=== PATIENT | female | born 1960 | race Caucasian/White ===

== ENCOUNTER 2019-07-25 08:12 | Day surgery (SDC) | payer BC, SELFPAY ==
--- NOTE | 2019-07-22 09:01 | EKG ---
Test Date: 2019-07-21 Test Time: 14:54:11 Director Dental Services: NARCISO MEASUREMENT RESULTS: Intervals: Rate: 51 NJ: 178 QRSD: 92 QT: 498 QTc: 458 [place]: P: 25 NJ: 178 QRS: 79 T: 74 INTERPRETIVE STATEMENTS: Sinus bradycardia with premature atrial complexes Otherwise normal ECG No previous ECG available for comparison Electronically Signed On 07-22-19 08:58:05 DIGITAL IMAGING TECHNICIAN by Nilesh Duncan
--- OUTSIDE RECORDS SUMMARY | 2019-07-25 08:15 | XMS REPORT | Summary of Care ---
:1960 Author Organization [facility] - Health Address [address] [place] [address] Care Team Providers Name Role Phone Naeem Xiao MD Primary Care Provider Encounter Details Date Type Department Care Team Description 03/12/2019 Orders Only [facility] Doctor Unassigned, No [address] [facility] [place] [address] [address] [place] [address] Allergies Active Allergy Reactions Severity Noted Date Comments Varenicline Unknown - See comments 06/16/2015 documented as of this encounter (statuses as of 03/12/2019) Medications Medication Sig Dispensed Refills Start Date End Date Status HYDROcodone-acetaminophen 0 07/21/2015 Active (NORCO) 10-325 mg tablet ziprasidone (GEODON) 80 0 07/21/2015 Active mg capsule FLUCONAZOLE 150 mg TAKE 1 TABLET 4 tablet 0 05/25/2017 Active tabletIndications: Tinea BY MOUTH cruris WEEKLY. potassium chloride Take 1 tablet 30 tablet 5 11/09/2017 Active (KLOR-CON 10) 10 mEq CR by mouth tabletIndications: daily. Localized edema Insulin [place], Use as 100 Each 12 11/26/2017 Active Disposable, (NOVOFINE 32) directed 32 gauge x /" NdleIndications: Uncontrolled type 2 diabetes mellitus without complication, without long-term current use of insulin NOVOFINE 32 32 gauge x USE 1 Box 12 11/27/2017 Active 1/4" NdleIndications: DIRECTED Uncontrolled type 2 diabetes mellitus without complication, without long-term current use of insulin insulin degludec (TRESIBA inject 40 15 Syringe 4 11/28/2017 Active FLEXTOUCH U-100) 100 Units under unit/mL (3 mL) the skin InPnIndications: Type 2 daily. diabetes mellitus without complication, with long-term current use of insulin GABAPENTIN 300 mg TAKE 1 CAPSULE 270 capsule 3 01/22/2018 Active capsuleIndications: BY MOUTH 3 Neuropathy (THREE) TIMES DAILY. albuterol 90 Inhale 2 Puffs 8.5 g 5 06/18/2018 Active mcg/actuation every 6 (six) inhalerIndications: hours as Simple chronic bronchitis needed for Wheezing or Shortness of Breath. fluticasone 50 Use 1 [place] in 16 g 5 06/18/2018 Active mcg/actuation nasal each nostril sprayIndications: Chronic daily. sinusitis, unspecified location telmisartan 80 mg TAKE 1 TABLET 90 tablet 4 06/18/2018 Active tabletIndications: BY MOUTH Essential hypertension DAILY. ALPRAZolam 0.5 mg TAKE 1 TABLET 60 tablet 5 06/18/2018 Active tabletIndications: BY MOUTH TWICE Anxiety A DAY gabapentin 300 mg Take 1 capsule 270 capsule 4 06/18/2018 Active capsuleIndications: by mouth 3 Neuropathy (three) times daily. vilazodone (VIIBRYD) 20 Take 1 tablet 90 tablet 4 06/18/2018 Active mgIndications: by mouth Depression, unspecified daily. depression type nortriptyline 75 mg Take 1 capsule 90 capsule 4 06/18/2018 Active capsuleIndications: by mouth at Depression, unspecified bedtime. depression type Fenofibric Acid 135 mg TAKE 1 CAPSULE 90 capsule 4 06/18/2018 Active capsuleIndications: BY MOUTH ONCE Hypertriglyceridemia A DAY metoprolol tartrate 25 mg TAKE 1 TABLET 180 tablet 4 06/18/2018 Active tabletIndications: BY MOUTH 2 Essential hypertension TIMES A DAY amLODIPine 5 mg Take 1 tablet 90 tablet 4 06/18/2018 Active tabletIndications: by mouth Essential hypertension daily. FUROSEMIDE 40 mg TAKE 1 TABLET 30 tablet 5 09/19/2018 Active tabletIndications: BY MOUTH EVERY Localized edema DAY TRESIBA FLEXTOUCH U-100 INJECT 40 15 Syringe 5 12/16/2018 Active 100 unit/mL (3 mL) UNITS UNDER InPnIndications: Type 2 THE SKIN diabetes mellitus without DAILY. complication, with long-term current use of insulin ESTRADIOL 0.5 mg TAKE 1 TABLET 90 tablet 0 12/26/2018 Active tabletIndications: BY MOUTH IN Menopausal syndrome THE MORNING documented as of this encounter (statuses as of 03/12/2019) Active Problems Problem Noted Date Smoking 06/18/2018 Depression 12/07/2015 Diabetes 12/07/2015 Essential hypertension 12/07/2015 Hypertriglyceridemia 12/07/2015 Osteoarthritis 12/07/2015 documented as of this encounter (statuses as of 03/12/2019) Immunizations Name Administration Dates Next Due Influenza Virus Vaccine Quad IM Multi-dose 6+ MO 05/02/2017 documented as of this encounter Social History Tobacco Use Types Packs/Day Years Used Date Current Every Day Smoker Cigarettes 1 40 Smokeless Tobacco: Never Used Alcohol Use Drinks/Week oz/Week Comments No 0 Standard drinks or equivalent 0.0 Sex Assigned at Date Recorded Not on file Job Start Date Occupation Industry Not on file Not on file Not on file Travel History Travel Start Travel End No recent travel history available. documented as of this encounter Last Filed Vital Signs Not on filedocumented in this encounter Plan of Treatment Date Type Specialty Care Team Description 03/12/2019 Office Visit Family Medicine Naeem Xiao MD [address] [place] [address] [place] [address] Health Maintenance Due Date Last Done Comments HEPATITIS C (HCV) SCREEN 1960 PNEUMOCOCCAL 0-64 YEARS COMBINED 1965 SERIES (1 of 1 - PPSV23) EYE EXAM 1969 FOOT EXAM 1977 DTaP,Tdap,and Td Vaccines (1 - 1978 Tdap) COLONOSCOPY 2009 Zoster Recombinant Vaccine 2009 (SHINGRIX) (1 of 2) LUNG CANCER SCREEN: Recommended 2014 for age 55-80 with 30 + pack year history HgA1C 12/17/2018 06/18/2018, 05/30/2017, 01/29/2017, Additional history exists MAMMOGRAM 02/26/2019 02/26/2018, 02/09/2017, 12/20/2015 INFLUENZA VACCINE (#1) 2019 05/02/2017 CREATININE (SERUM) 08/01/2019 08/01/2018, 11/09/2017, 05/31/2016, Additional history exists LDL-C 08/01/2019 08/01/2018, 05/31/2016, 06/16/2015 URINE MICROALBUMIN 08/01/2019 08/01/2018, 05/31/2016, 06/16/2015 documented as of this encounter Procedures Procedure Name Priority Date/Time Associated Diagnosis Comments NO SHOW OR MISSED Routine 03/12/2019 2:54 PM APPOINTMENT POLICY CDT ACKNOWLEDGEMENT documented in this encounter Results Not on filedocumented in this encounter Insurance Payer Benefit Plan Subscriber ID Effective Dates Phone Address Type / Group BCBS OF [employer] [place] [id number] 2016-Deric [phone] [address] PPO/POS [place] - OUT OF t 7 [id number] [place] [address] documented as of this encounter
--- OUTSIDE RECORDS SUMMARY | 2019-07-25 08:15 | XMS REPORT | Summary of Care ---
:1960 Author Organization [facility] - [facility] Address [address] [place] [address] Care Team Providers Name Role Phone Naeem Xiao MD Primary Care Provider Reason for Referral Radiology Services (Routine) Status Reason Specialty Diagnoses / Referred By Referred To Procedures Contact Contact New Request Diagnostic Diagnoses Left foot pain Naeem Xiao Radiology Procedures XR FOOT 3+ VW LEFT MD Jason [address] [place] [address] [place] [address] Reason for Visit Reason Comments Foot Pain left x 1 week Encounter Details Date Type Department Care Team Description 03/12/[address] [facility] Family Naeem Xiao Left foot pain Medicine - Hong Gomez MD (Primary Dx) [facility] [address] [place] [address] [place] [phone] Allergies Active Allergy Reactions Severity Noted Date [...] by mouth tabletIndications: daily. Localized edema Insulin [place], Use as 100 Each 12 11/26/2017 Active Disposable, (NOVOFINE 32) directed 32 gauge x 07/19" NdleIndications: Uncontrolled type 2 diabetes mellitus without complication, without long-term current use of insulin NOVOFINE 32 32 gauge x USE 1 Box 12 11/27/2017 Active 07/19" NdleIndications: DIRECTED Uncontrolled type 2 diabetes mellitus [...] Shortness of Breath. fluticasone 50 Use 1 [place] in 16 g 5 06/18/2018 Active mcg/actuation [...] BY MOUTH IN Menopausal syndrome THE MORNING indomethacin 50 mg Take 1 capsule 30 capsule 2 03/12/2019 Active capsuleIndications: Left by mouth 3 foot pain (three) times daily with meals. documented as of this encounter (statuses as [...] of this encounter Last Filed Vital Signs Vital Sign Reading Time Taken Comments Blood Pressure 154/79 03/12/2019 3:04 PM CDT Pulse 63 03/12/2019 3:04 PM CDT Temperature 36.3 C (97.4 F) 03/12/2019 3:04 PM CDT Respiratory Rate 16 03/12/2019 3:04 PM CDT Oxygen Saturation - - Inhaled Oxygen Concentration - - Weight 104.2 kg (229 lb 12.8 oz) 03/12/2019 3:04 PM CDT Height 165.1 cm (5' 5") 03/12/2019 3:04 PM CDT Body Mass Index 38.24 03/12/2019 3:04 PM CDT documented in this encounter Progress Notes Naeem Xiao MD - 03/12/2019 3:15 PM CDT CC: pain left foot Angela is a 59 year old female Foot Pain This is a new problem. The current episode started in the past 7 days. The symptoms are aggravated by standing and walking. She has tried oral narcotics for the symptoms. The treatment provided no relief. Allergies Allergen Reactions Chantix [Varenicline] Unknown - See comments Current Outpatient Medications Medication Sig Dispense Refill ESTRADIOL 0.5 mg tablet TAKE 1 TABLET BY MOUTH IN THE MORNING 90 tablet 0 [place]ES[place]A FLEXTOUCH U-100 100 unit/mL (3 mL) InPn INJECT 40 UNITS UNDER THE SKIN DAILY. 15 Syringe5 FUROSEMIDE 40 mg tablet TAKE 1 TABLET BY MOUTH EVERY DAY 30 tablet 5 albuterol 90 mcg/actuation inhaler Inhale 2 Puffs every 6 (six) hours as needed for Wheezing or Shortness of Breath. 8.5 g 5 ALPRAZolam 0.5 mg tablet TAKE 1 TABLET BY MOUTH TWICE A DAY 60 tablet 5 amLODIPine 5 mg tablet Take 1 tablet by mouth daily. 90 tablet 4 Fenofibric Acid 135 mg capsule TAKE 1 CAPSULE BY MOUTH ONCE A DAY 90 capsule 4 fluticasone 50 mcg/actuation nasal spray Use 1 [place] in each nostril daily. 16 g 5 gabapentin 300 mg capsule Take 1 capsule by mouth 3 (three) times daily. 270 capsule 4 metoprolol tartrate 25 mg tablet TAKE 1 TABLET BY MOUTH 2 TIMES A DAY 180 tablet 4 nortriptyline 75 mg capsule Take 1 capsule by mouth at bedtime. 90 capsule 4 telmisartan 80 mg tablet TAKE 1 TABLET BY MOUTH DAILY. 90 tablet 4 vilazodone (VIIBRYD) 20 mg Take 1 tablet by mouth daily. 90 tablet 4 GABAPENTIN 300 mg capsule TAKE 1 CAPSULE BY MOUTH 3 (THREE) TIMES DAILY. 270 capsule 3 insulin degludec (TRESIBA FLEXTOUCH U-100) 100 unit/mL (3 mL) InPn inject 40 Units under the skin daily. 15 Syringe 4 NOVOFINE 32 32 gauge x 1/4" Ndle USE DIRECTED 1 Box 12 Insulin [place], Disposable, (NOVOFINE 32) 32 gauge x 1/4" Ndle Use as directed 100 Each 12 potassium chloride (KLOR-CON 10) 10 mEq CR tablet Take 1 tablet by mouth daily. 30 tablet 5 FLUCONAZOLE 150 mg tablet TAKE 1 TABLET BY MOUTH WEEKLY. 4 tablet 0 HYDROcodone-acetaminophen (NORCO) 10-325 mg tablet ziprasidone (GEODON) 80 mg capsule No current facility-administered medications for this visit. Past Medical History: Diagnosis Date Depression Diabetes mellitus Generalized pain Hyperlipidemia Hypertension Seizures Past Surgical History: Procedure Laterality Date SECTION CHOLECYSTECTOMY HYSTERECTOMY complete OPEN CARPAL TUNNEL RELEASE Left RADICAL HYSTERECTOMY TONSILLECTOMY Social History Socioeconomic History Marital status: Spouse name: Not on file Number of children: Not on file Years of education: Not on file Highest education level: Not on file Occupational History Not on file Social Needs Financial resource strain: Not on file Food insecurity: Worry: Not on file Inability: Not on file Transportation needs: Medical: Not on file Non-medical: Not on file Tobacco Use Smoking status: Current Every Day Smoker Packs/day: 1.00 Years: 40.00 Pack years: 40.00 Types: Cigarettes Smokeless tobacco: Never Used Substance and Sexual Activity Alcohol use: No Alcohol/week: 0.0 oz Drug use: No Sexual activity: Not on file Lifestyle Physical activity: Days per week: Not on file Minutes per session: Not on file Stress: Not on file Relationships Social connections: Talks on phone: Not on file Gets together: Not on file Attends jehovah's witness service: Not on file Active member of club or organization: Not on file Attends meetings of clubs or organizations: Not on file Relationship status: Not on file Intimate partner violence: Fear of current or ex partner: Not on file Emotionally abused: Not on file Physically abused: Not on file Forced sexual activity: Not on file Other Topics Concern Not on file Social History Narrative Takes care of parents Family History Problem Relation Age of Onset Diabetes Father Hypertension Father Hypertension Mother Cancer Maternal Grandmother Lung Breast Cancer Paternal Aunt Review of Systems BP (!) 154/79 (BP Location: Left arm, Patient Position: Sitting, BP CUFF SIZE: Adult XL) | Pulse 63 | Temp 36.3 C (97.4 F) (Temporal Artery) | Resp 16 | Ht 5' 5" (1.651 m) | Wt 229 lb 12.8 oz (104.2 kg) | BMI 38.24 kg/m Physical Exam Constitutional: She is oriented to person, place, and time. She appears well- developed and well-nourished. HENT: Head: Normocephalic and atraumatic. Eyes: Pupils are equal, round, and reactive to light. Conjunctivae are normal. Neck: Normal range of motion. Neck supple. No JVD present. No tracheal deviation present. No thyromegaly present. Cardiovascular: Normal rate, regular rhythm, normal heart sounds and intact distal pulses. Exam reveals no gallop and no friction rub. No murmur heard. Pulmonary/Chest: Effort normal and breath sounds normal. No respiratory distress. She has no wheezes. She has no rales. She exhibits no tenderness. Abdominal: Soft. Bowel sounds are normal. She exhibits no distension and no mass. There is no tenderness. There is no rebound and no guarding. Musculoskeletal: Normal range of motion. She exhibits no edema. Left foot: There is tenderness (across entire sole of foot). Lymphadenopathy: She has no cervical adenopathy. Neurological: She is alert and oriented to person, place, and time. Skin: Skin is warm and dry. Diagnosis: 1. Left foot pain XR FOOT 3+ VW LEFT indomethacin 50 mg capsule if xray negative - stretching exercises Follow up: prn Patient Care Team: Naeem Xiao MD as PCP - General ([facility]-FAMILY MEDICINE) Plan of care, desired health behaviors, goals,& medication discussed with patient. Education resources & self management tools provided and reviewed with AVS. Patient/guardian/family verbalized understanding & agrees to plan of care. Barriers to care: None Ability to manage care: Good documented in this encounter Plan of Treatment Name Type Priority Associated Diagnoses Order Schedule XR FOOT 3+ VW LEFT IMAGING Routine Left foot pain Expected: 03/12/2019, Expires: 03/12/2020 Health Maintenance Due Date Last Done Comments [...] 05/31/2016, 06/16/2015 documented as of this encounter Results Not on filedocumented in this encounter Visit Diagnoses Diagnosis Left foot pain - Primary Pain in limb documented in this encounter Insurance Payer Benefit Plan Subscriber ID Effective Dates Phone Address Type / Group BCBS OF [facility] [id number] 2016-Deric [phone] [address] PPO/POS [place] - OUT OF t 7 [id number] [place] [address] documented as of this encounter
--- OUTSIDE RECORDS SUMMARY | 2019-07-25 08:15 | XMS REPORT | Summary of Care ---
:1960 Author Organization [facility] - [facility] Address [address] [place] [address] Care Team Providers Name Role Phone Naeem Xiao MD Primary Care Provider Reason for Referral Radiology Services (Routine) Status Reason Specialty Diagnoses / Referred By Referred To Procedures Contact Contact New Request Diagnostic Diagnoses Left foot pain Naeem Xiao Radiology Procedures XR FOOT 3+ VW LEFT MD Jason [address] [place] [address] [place] [address] Reason for Visit Reason Comments Foot Pain left x 1 week Encounter Details Date Type Department Care Team Description 03/12/2019 Office Visit [facility] Family Naeem Xiao Left foot pain Medicine - Hong Gomez MD (Primary Dx) [facility] [address] [place] [address] [place] [phone] Allergies Active Allergy Reactions Severity Noted Date [...] by mouth tabletIndications: daily. Localized edema Insulin [place], Use as 100 Each 12 11/26/2017 Active [...] Shortness of Breath. fluticasone 50 Use 1 [place] in 16 g 5 06/18/2018 Active mcg/actuation [...] fluticasone 50 mcg/actuation nasal spray Use 1 [place] in each nostril daily. 16 g 5 [...] Ndle USE DIRECTED 1 Box 12 Insulin [place], Disposable, (NOVOFINE 32) 32 gauge x 1/4" [...] file Gets together: Not on file Attends zoroastrian service: Not on file Active member of [...] Phone Address Type / Group BCBS OF [facility] [id number] 2016-Deric [phone] [address] PPO/POS [place] - OUT OF t 7 [id number] [place] [address] documented as of this encounter
--- OUTSIDE RECORDS SUMMARY | 2019-07-25 08:16 | XMS REPORT | Summary of Care ---
:1960 Author Organization [facility] Address [address] [place] [address] Care Team Providers Name Role Phone Naeem Xiao MD Primary Care Provider Reason for Visit Reason Comments Refill Request Encounter Details Date Type Department Care Team Description 03/21/[address] [facility] Family Medicine Naeem Xiao MD Refill Request - [address] [address] [place] [address] Allergies Active Allergy Reactions Severity Noted Date Comments Varenicline Unknown - See comments 06/16/2015 documented as of this encounter (statuses as of 03/24/2019) Medications Medication Sig Dispensed Refills Start End Status Date Date HYDROcodone-acetaminophe 0 07/21/19 Active n (NORCO) 10-325 mg 16 tablet ziprasidone (GEODON) 80 0 07/21/19 Active mg capsule 16 FLUCONAZOLE 150 mg TAKE 1 TABLET 4 tablet 0 05/25/20 Active tabletIndications: Tinea BY MOUTH 17 cruris WEEKLY. potassium chloride Take 1 tablet 30 tablet 5 11/10/19 Active (KLOR-CON 10) 10 mEq CR by mouth 18 tabletIndications: daily. Localized edema NOVOFINE 32 32 gauge x USE 1 Box 12 11/28/19 Active 1/4" NdleIndications: DIRECTED 18 Uncontrolled type 2 diabetes mellitus without complication, without long-term current use of insulin insulin degludec inject 40 15 Syringe 4 11/29/19 Active (TRESIBA FLEXTOUCH Units under 18 U-100) 100 unit/mL (3 the skin mL) InPnIndications: daily. Type 2 diabetes mellitus without complication, with long-term current use of insulin GABAPENTIN 300 mg TAKE 1 270 capsule 3 01/23/20 Active capsuleIndications: CAPSULE BY 18 Neuropathy MOUTH 3 (THREE) TIMES DAILY. albuterol 90 Inhale 2 8.5 g 5 06/18/20 Active mcg/actuation Puffs every 6 18 inhalerIndications: (six) hours Simple chronic as needed for bronchitis Wheezing or Shortness of Breath. fluticasone 50 Use 1 [place] 16 g 5 06/18/20 Active mcg/actuation nasal in each 18 sprayIndications: nostril Chronic sinusitis, daily. unspecified location telmisartan 80 mg TAKE 1 TABLET 90 tablet 4 06/18/20 Active tabletIndications: BY MOUTH 18 Essential hypertension DAILY. ALPRAZolam 0.5 mg TAKE 1 TABLET 60 tablet 5 06/18/20 Active tabletIndications: BY MOUTH 18 Anxiety TWICE A DAY gabapentin 300 mg Take 1 270 capsule 4 06/18/20 Active capsuleIndications: capsule by 18 Neuropathy mouth 3 (three) times daily. vilazodone (VIIBRYD) 20 Take 1 tablet 90 tablet 4 06/18/20 Active mgIndications: by mouth 18 Depression, unspecified daily. depression type nortriptyline 75 mg Take 1 90 capsule 4 06/18/20 Active capsuleIndications: capsule by 18 Depression, unspecified mouth at depression type bedtime. Fenofibric Acid 135 mg TAKE 1 90 capsule 4 06/18/20 Active capsuleIndications: CAPSULE BY 18 Hypertriglyceridemia MOUTH ONCE A DAY metoprolol tartrate 25 TAKE 1 TABLET 180 tablet 4 06/18/20 Active mg tabletIndications: BY MOUTH 2 18 Essential hypertension TIMES A DAY amLODIPine 5 mg Take 1 tablet 90 tablet 4 06/18/20 Active tabletIndications: by mouth 18 Essential hypertension daily. FUROSEMIDE 40 mg TAKE 1 TABLET 30 tablet 5 09/20/19 Active tabletIndications: BY MOUTH 19 Localized edema EVERY DAY TRESIBA FLEXTOUCH U-100 INJECT 40 15 Syringe 5 12/17/19 Active 100 unit/mL (3 mL) UNITS UNDER 19 InPnIndications: Type 2 THE SKIN diabetes mellitus DAILY. without complication, with long-term current use of insulin indomethacin 50 mg Take 1 30 capsule 2 03/12/20 Active capsuleIndications: Left capsule by 19 foot pain mouth 3 (three) times daily with meals. Insulin [place], USE 1 Box 12 03/19/20 Active Disposable, (NOVOFINE DIRECTED 19 32) 32 gauge x 1/4" NdleIndications: Uncontrolled type 2 diabetes mellitus without complication, without long-term current use of insulin ESTRADIOL 0.5 mg TAKE 1 TABLET 30 tablet 2 03/24/20 Active tabletIndications: BY MOUTH 19 Menopausal syndrome EVERY DAY IN THE MORNING ESTRADIOL 0.5 mg TAKE 1 TABLET 90 tablet 0 12/27/19 Discontinued tabletIndications: BY MOUTH IN 19 019 Menopausal syndrome THE MORNING documented as of this encounter (statuses as of 03/24/2019) Active Problems Problem Noted Date Smoking 06/18/2018 Depression 12/07/2015 Diabetes 12/07/2015 Essential hypertension 12/07/2015 Hypertriglyceridemia 12/07/2015 Osteoarthritis 12/07/2015 documented as of this encounter (statuses as of 03/24/2019) Immunizations Name Administration Dates Next Due Influenza [...] filedocumented in this encounter Plan of Treatment Health Maintenance Due Date Last Done Comments [...] filedocumented in this encounter Visit Diagnoses Diagnosis Menopausal syndrome Symptomatic menopausal or female climacteric states documented in this encounter Insurance Payer Benefit Plan Subscriber ID Effective Dates Phone Address Type / Group BCBS OF BCBS [facility] [id number] 2016-Deric [phone] [address] PPO/POS [place] - OUT OF t 7 [id number] [place] [address] documented as of this encounter
--- OUTSIDE RECORDS SUMMARY | 2019-07-25 08:16 | XMS REPORT | Summary of Care ---
:1960 Author Organization [facility] Address [address] [place] [address] Care Team Providers Name Role Phone Naeem Xiao MD Primary Care Provider Reason for Referral Radiology Services (Routine) Status Reason Specialty Diagnoses / Referred By Referred To Procedures Contact Contact Closed Diagnostic Diagnoses Left foot pain Naeem Xiao Radiology Procedures XR FOOT 3+ VW LEFT MD Jason [address] [place] [address] [place] [address] Radiology Services (Routine) Status Reason Specialty Diagnoses / Referred By Referred To Procedures Contact Contact Closed Diagnostic Diagnoses Left foot pain Naeem Xiao Radiology Procedures XR FOOT 3+ VW LEFT MD Jason [address] [place] [address] [place] [address] Reason for Visit Radiology Services (Routine) Status Reason Specialty Diagnoses / Referred By Referred To Procedures Contact Contact Closed Diagnostic Diagnoses Left foot pain Naeem Xiao Radiology Procedures XR FOOT 3+ VW LEFT MD Jason [address] [place] [address] [facility] [place] [address] Encounter Details Date Type Department Care Team Description 03/21/2019 Hospital Encounter [facility] Naeem Castillo Radiology MD Jason [address] [place] [address] [place] [address] [place] [address] [place], [place] [phone] [address] Allergies Active Allergy Reactions Severity Noted Date Comments Varenicline Unknown - See comments 06/16/2015 documented as of this encounter (statuses as of 03/22/2019) Medications Medication Sig Dispensed Refills Start Date [...] CR by mouth tabletIndications: daily. Localized edema NOVOFINE 32 32 [...] Shortness of Breath. fluticasone 50 Use 1 [place] in 16 g 5 06/18/2018 Active mcg/actuation [...] foot pain (three) times daily with meals. Insulin [place], USE 1 Box 12 03/19/2019 Active Disposable, (NOVOFINE 32) DIRECTED 32 gauge x 1/4" NdleIndications: Uncontrolled type 2 diabetes mellitus without complication, without long-term current use of insulin documented as of this encounter (statuses as of 03/22/2019) Active Problems Problem Noted Date Smoking 06/18/2018 Depression 12/07/2015 Diabetes 12/07/2015 Essential hypertension 12/07/2015 Hypertriglyceridemia 12/07/2015 Osteoarthritis 12/07/2015 documented as of this encounter (statuses as of 03/22/2019) Immunizations Name Administration Dates Next Due Influenza [...] Procedure Name Priority Date/Time Associated Diagnosis Comments XR FOOT 3+ VW LEFT Routine 03/21/2019 3:04 PM Left foot pain Results for this CDT procedure are in the results section. documented in this encounter Results XR FOOT 3+ VW LEFT (03/21/2019 3:04 PM CDT) Specimen Impressions Performed At 1. No acute bony abnormality PACS/VR/DOSE 2. Changes of degenerative joint disease 3. Soft tissue swelling. 4. Small plantar spur Narrative Performed At * * * * * * * * ORIGINAL REPORT * * * * * * * * PACS/VR/DOSE EXAM: Left foot 3 views HISTORY: severe pain left foot TECHNIQUE:AP, lateral, oblique view of the left foot is obtained. COMPARISON: 08/05/2015 FINDINGS:No acute fracture or dislocation is seen. Degenerative changes are seen in the MTP joint of the great toe as well as talonavicular joint and intertarsal joints. A plantar calcaneal spur is present. Ossification of the insertion site of the Achilles tendon is noted. Mild soft tissue swelling is seen in the mid forefoot. Procedure Note [facility], Radiant Results Inft User - 03/21/2019 3:26 PM CDT * * * * * * * * ORIGINAL REPORT * * * * * * * * EXAM: Left foot 3 views HISTORY: severe pain left foot TECHNIQUE:AP, lateral, oblique view of the left foot is obtained. COMPARISON: 08/05/2015 FINDINGS:No acute fracture or dislocation is seen. Degenerative changes are seen in the MTP joint of the great toe as well as talonavicular joint and intertarsal joints. A plantar calcaneal spur is present. Ossification of the insertion site of the Achilles tendon is noted. Mild soft tissue swelling is seen in the mid forefoot. IMPRESSION 1. No acute bony abnormality 2. Changes of degenerative joint disease 3. Soft tissue swelling. 4. Small plantar spur Performing Organization Address [facility] Number [facility]/VR/DOSE documented in this encounter Visit Diagnoses Diagnosis Left foot pain Pain in limb documented in this encounter Insurance Payer Benefit Plan Subscriber ID Effective Dates Phone Address Type / Group BCBS [facility] [id number] 2016-Deric [phone] [address] PPO/POS [place] - OUT OF t 7 [id number] [place] [address] documented as of this encounter
--- OUTSIDE RECORDS SUMMARY | 2019-07-25 08:16 | XMS REPORT | Summary of Care ---
:1960 Author Organization [facility] Address [address] [place] [address] Care Team Providers Name Role Phone Naeem Xiao MD Primary Care Provider Reason for Visit Reason Comments Refill Request Encounter Details Date Type Department Care Team Description 03/19/2019 Refill [facility] Family Medicine Naeem Xiao MD Refill Request - [address] [address] [place] [address] Allergies Active Allergy Reactions Severity Noted Date Comments Varenicline Unknown - See comments 06/16/2015 documented as of this encounter (statuses as of 03/19/2019) Medications Medication Sig Dispensed Refills Start End [...] Shortness of Breath. fluticasone 50 Use 1 [place] 16 g 5 06/18/20 Active mcg/actuation nasal [...] TAKE 1 TABLET 90 tablet 0 12/27/19 Active tabletIndications: BY MOUTH IN 19 Menopausal syndrome THE MORNING indomethacin 50 mg Take 1 30 capsule 2 03/12/20 Active capsuleIndications: Left capsule by 19 foot pain mouth 3 (three) times daily with meals. Insulin [place], USE 1 Box 12 03/19/20 Active Disposable, (NOVOFINE DIRECTED 19 32) 32 gauge x 1/4" NdleIndications: Uncontrolled type 2 diabetes mellitus without complication, without long-term current use of insulin Insulin [place], Use as 100 Each 12 11/27/19 Discontinued Disposable, (NOVOFINE directed 18 019 32) 32 gauge x 1/4" NdleIndications: Uncontrolled type 2 diabetes mellitus without complication, without long-term current use of insulin documented as of this encounter (statuses as of 03/19/2019) Active Problems Problem Noted Date Smoking 06/18/2018 Depression 12/07/2015 Diabetes 12/07/2015 Essential hypertension 12/07/2015 Hypertriglyceridemia 12/07/2015 Osteoarthritis 12/07/2015 documented as of this encounter (statuses as of 03/19/2019) Immunizations Name Administration Dates Next Due Influenza [...] filedocumented in this encounter Visit Diagnoses Diagnosis Uncontrolled type 2 diabetes mellitus without complication, without long-term current use of insulin documented in this encounter Insurance Payer Benefit Plan Subscriber ID Effective Dates Phone Address Type / Group BCBS OF [employer] [place] [id number] 2016-Deric [phone] [address] PPO/POS [place] - OUT OF t 7 [id number] [place] [address] documented as of this encounter
--- OUTSIDE RECORDS SUMMARY | 2019-07-25 08:16 | XMS REPORT ---
:1960 Author Organization [facility] Address [address] [place] [address] Dr. Espinosa [address] [place] [address] Care Team Providers Name Role Phone Unavailable Unavailable Unavailable Problems This patient has no known problems. Allergies, Adverse Reactions, Alerts This patient has no known allergies or adverse reactions. Medications This patient has no known medications.
--- OUTSIDE RECORDS SUMMARY | 2019-07-25 08:16 | XMS REPORT | Summary of Care ---
:1960 Author Organization [facility] - [facility] Address [address] [place] [address] Care Team Providers Name Role Phone Naeem Xiao MD Primary Care Provider Encounter Details Date Type Department Care Team Description 03/21/2019 Orders Only [facility] Doctor Unassigned, [address] [facility] Name [place] [id number] [place] [address] Allergies Active Allergy Reactions Severity Noted Date Comments Varenicline Unknown - See comments 06/16/2015 documented as of this encounter (statuses as of 03/21/2019) Medications Medication Sig Dispensed Refills Start Date [...] x USE 1 Box 12 11/27/2017 Active /" NdleIndications: DIRECTED Uncontrolled type 2 diabetes mellitus [...] Shortness of Breath. fluticasone 50 Use 1 [place] in 16 g 5 06/18/2018 Active mcg/actuation [...] pain (three) times daily with meals. Insulin [place], USE 1 Box 12 03/19/2019 Active Disposable, (NOVOFINE 32) DIRECTED 32 gauge x 1/4" NdleIndications: Uncontrolled type 2 diabetes mellitus without complication, without long-term current use of insulin documented as of this encounter (statuses as of 03/21/2019) Active Problems Problem Noted Date Smoking 06/18/2018 Depression 12/07/2015 Diabetes 12/07/2015 Essential hypertension 12/07/2015 Hypertriglyceridemia 12/07/2015 Osteoarthritis 12/07/2015 documented as of this encounter (statuses as of 03/21/2019) Immunizations Name Administration Dates Next Due Influenza [...] Procedure Name Priority Date/Time Associated Diagnosis Comments ASSIGNMENT OF BENEFITS Routine 03/21/2019 2:54 PM CDT documented in this encounter Results Not on filedocumented in this encounter Insurance Payer Benefit Plan Subscriber ID Effective Dates Phone Address Type / Group BCBS OF [facility] [place] [id number] 2016-Deric [phone] [address] PPO/POS [place] - OUT OF t 7 [id number] [place] [address] documented as of this encounter
--- OUTSIDE RECORDS SUMMARY | 2019-07-25 08:16 | XMS REPORT | Summary of Care ---
:1960 Author Organization [facility] Address [address] [place] [address] Care Team Providers Name Role Phone Naeem Xiao MD Primary Care Provider Reason for Visit Reason Comments Results Encounter Details Date Type Department Care Team Description 03/24/2019 Telephone [facility] Family Medicine Naeem Xiao MD Results - [address] [address] [place] [address] Allergies Active Allergy Reactions Severity Noted Date Comments Varenicline Unknown - See comments 06/16/2015 documented as of this encounter (statuses as of 03/24/2019) Medications Medication Sig Dispensed Refills Start Date [...] x USE 1 Box 12 11/27/2017 Active 1" NdleIndications: DIRECTED Uncontrolled type 2 diabetes mellitus [...] Shortness of Breath. fluticasone 50 Use 1 [place] in 16 g 5 06/18/2018 Active mcg/actuation [...] of insulin indomethacin 50 mg Take 1 capsule 30 capsule 2 03/12/2019 Active capsuleIndications: Left by mouth 3 foot pain (three) times daily with meals. Insulin [place], USE 1 Box 12 03/19/2019 Active Disposable, (NOVOFINE 32) DIRECTED 32 gauge x 1/4" NdleIndications: Uncontrolled type 2 diabetes mellitus without complication, without long-term current use of insulin ESTRADIOL 0.5 mg TAKE 1 TABLET 30 tablet 2 03/24/2019 Active tabletIndications: BY MOUTH EVERY Menopausal syndrome DAY IN THE MORNING documented as of this encounter [...] Type / Group BCBS OF [employer] [place] [id number] 2016-Deric [phone] [address] PPO/POS [place] - OUT OF t 7 [id number] [place] [address] documented as of this encounter
[2019-07-25] MEDS ORDERED: NA CHLORIDE 0.9% 1,000 ML ONE (08:47)
[2019-07-25] MEDS ORDERED: EPINEPHRINE/PF 1 MG/ML AMP ONE (09:49)
[2019-07-25] MEDS ORDERED: LIDOCAINE 1% W/EPI 1:100,000 MDV 20 ML VIAL ONE (09:49)
[2019-07-25] MEDS ORDERED: OXYMETAZOLINE HCL 0.05% 15ML NAS ONE (09:49)
[2019-07-25] MEDS ORDERED: SUCCINYLCHOLINE 20 MG/ML (10 ML) IV ONE (10:07)
[2019-07-25] MEDS ORDERED: MIDAZOLAM HCL 2 MG/2 ML INJ ONE (10:08)
[2019-07-25] MEDS ORDERED: ROCURONIUM 50 MG/5 ML VIAL IV ONE (10:08)
[2019-07-25] MEDS ORDERED: LIDOCAINE 2% MPF 5 ML VIAL ONE (10:08)
[2019-07-25] MEDS ORDERED: propofoL 200 MG/20 ML VIAL IV ONE ×2 (10:08→10:54)
[2019-07-25] MEDS ORDERED: FENTANYL CITR 100 MCG/2 ML ONE ×3 (10:09→11:24)
[2019-07-25] MEDS ORDERED: ONDANSETRON 4 MG/2 ML VIAL ONE ×2 (10:13→11:29)
[2019-07-25] MEDS ORDERED: GLYCOPYRROLATE 0.2 MG/ML SYR ONE ×3 (10:45→11:27)
--- NOTE | 2019-07-25 12:20 | P.BOP ---
Preoperative diagnosis: vocal polyps, tobacco use Postoperative diagnosis: same Primary procedure: DL with exision of right TVF polyps Osteopathic Medicine Teacher: NONE,NONE Estimated blood loss: <5ml Specimen: R TVF lesion/polyps Findings: large, obstructive polyps Anesthesia: General Complications: None Fluids & blood products: see gerald. record Transferred to: Recovery Room Condition: Good
[2019-07-25 16:37] VITALS: BP 169/97; TEMP 97; O2SAT 96
--- NOTE | 2019-07-27 00:35 | OP ---
Date of Procedure: 07/25/2019 Surgeon: Esperanza Clifton MD Lube Man: None. Preoperative Diagnoses: Vocal fold polyps, tobacco use, chronic coarseness. Postoperative Diagnoses: Vocal fold polyps, tobacco use, chronic coarseness. Procedure: Direct laryngoscopy with excision of right true vocal fold polyps. Blood Loss: Less than 5 mL. Specimen: Right true vocal fold lesion/polyps. Finding: Large bilateral obstructive polyps. Anesthesia: General. Complications: None. Indication For Procedure: Ms. Cuevas presented to the clinic with a history of hoarseness and tobacco use. A flexible endoscopy was performed, which demonstrated large bilateral vocal polyps with a deep raspy voice, intermittent voice breaks and increased noise with respiration as well as observed dyspnea on exertion. Due to the degree of the vocal polyps, recommendation was made for polyp removal unilaterally with close observation and strong recommendation for tobacco cessation. The risks, benefits, and alternatives were discussed with the patient and her spouse. They agreed to proceed. Description Of Procedure: The patient was brought to the operating room. She was placed under general anesthesia. The Vaughn-Berci laryngoscope was fitted with a 15-degree telescope. A plastic tooth guard was placed on the patient's upper teeth. The left upper tooth was noted to be somewhat irregular prior to initiation of the procedure. The relevant laryngoscope was placed, but it was noted that the balloon of the endotracheal tube was occupying the supraglottic space. Therefore, the glide scope was used in order to remove the endotracheal Lynette tube and replace it with a size 6 standard straight endotracheal tube. After appropriate placement, the tube was secured and the procedure could begin. The glide scope was set aside and the Vaughn-Berci laryngoscope was again used to perform a direct laryngoscopy. The glottic opening was difficult to visualize due to the degree of polyposis. Photodocumentation of the patient' s larynx was obtained. Based on preoperative assessment, the polyps were felt to be larger on the right side and this was selected for dressing today. The edge of the polyp was grasped with an alligator and a laryngeal scissor was used to incise the polyp. The additional polyps in more anteriorly were removed with a small cup forceps and a small up-biting cup forceps until all the polyps were removed and epinephrine-soaked pledget was applied to the cut surfaces to aid in hemostasis. After several minutes, this packing was removed and photo documentation was obtained. A small mucosal flap was laid over the phonating surface and photo documentation was obtained. There was significant improvement in the glottic airway overall, but the patient still has large and partially obstructive polyps of the left vocal cord. Addressing the left vocal cord was ill-advised today due to the risk of scarring and formation of a glottic web. At the conclusion of the procedure, the patient was returned to care of Anesthesia for awakening and extubation in the operating room, which proceeded without difficulty. Complications: None. Disposition: The patient will be discharged home later today in the care of her family. She is strongly advised for complete voice rest for at least 7 days and is strongly advised for complete tobacco cessation for at least 7 days. She will return for re-evaluation in 7-10 days for evaluation of healing. Once the right side is completely healed, consideration will be made for surgical removal of the left vocal polyps. The patient will be advised that excision of polyps would be best performed once the patient has successfully quit tobacco use. Further discussion of the risks of surgery in light of continued tobacco use was made with the patient again at the time of her followup visit. SANJANA Voice ID: [id number] Report ID: [id number] SADIE
== END 2019-07-25 13:15 | disposition home or self-care (01) ==
LOC: OR 08:12
PROVIDERS: ATTEND Otolaryngology
PROC: 0CBT8ZZ Excision of Right Vocal Cord, Via Natural or Artificial Opening Endoscopic (ICD-10-PCS; principal; 2019-07-25 10:00)
DX: J38.1 Polyp of vocal cord and larynx (principal); R49.0 Dysphonia; I10 Essential (primary) hypertension; E11.9 Type 2 diabetes mellitus without complications; G62.9 Polyneuropathy, unspecified; F32.9 Major depressive disorder, single episode, unspecified; F17.200 Nicotine dependence, unspecified, uncomplicated
CPT/HCPCS: 93005; 82947 ×2; 88305; 31540; J2704 ×2; J0171; J0330; J2250; J3010; J7030; J2405 ×2

== ENCOUNTER 2019-12-26 07:52 | Day surgery (SDC) | payer BC ==
--- NOTE | 2019-12-23 06:36 | EKG ---
Test Date: 2019-12-22 Test Time: 11:30:48 Fingerprint Technician: ESTUARDO MEASUREMENT RESULTS: Intervals: Rate: 57 AL: 182 QRSD: 90 QT: 444 QTc: 432 [place]: P: 31 AL: 182 QRS: 77 T: 76 INTERPRETIVE STATEMENTS: Sinus bradycardia Otherwise normal ECG Compared to ECG 07/21/2019 14:54:11 Atrial premature complex(es) no longer present Electronically Signed On 12-23-19 06:34:51 CDT by Nilesh Duncna
--- OUTSIDE RECORDS SUMMARY | 2019-12-26 08:07 | XMS REPORT | Continuity of Care Document ---
:1960 Author Organization [facility] t Address [address] [place] [address] Care Team Providers Name Role Phone Dameon PATE, Jason Attending Clinician Problems This patient has no known problems. Allergies, Adverse Reactions, Alerts This patient has no known allergies or adverse reactions. Medications This patient has no known medications. Procedures This patient has no known procedures. Encounters Start End Encounter Admission Attending Care Care Encounter Source Date/Time Date/Time Type Type Clinicians Facility Department ID 2019-12-16 2019-12-16 Telephone JAILYN Xiao [id number] 00:00:00 00:00:00 [facility] [id number] [facility] [id number] Professio [phone] nal [facility] [address] 2019-12-02 2019-12-02 Refill Dameon ALKWABENA [id number] 00:00:00 00:00:00 [facility] [id number] [facility] [id number] Professio [phone] [address] 2019-12-01 2019-12-01 Reflubna Xiao ALKWABENA [id number] 00:00:00 00:00:00 [facility] [id number] [facility] [id number] Professio [phone] [place] [address] [address] 2019-11-19 2019-11-19 Telephone GRANT Xiao [id number] 00:00:00 00:00:00 [facility] [id number] [facility] [phone] [id number] 2019-11-06 2019-11-06 Telephone JAILYN Xiao [id number] 00:00:00 00:00:00 [facility] [id number] [facility] [id number] [place] [phone] [place] [address] [address] Results This patient has no known results.
--- OUTSIDE RECORDS SUMMARY | 2019-12-26 08:08 | XMS REPORT | Summary of Care ---
:1960 Author Organization [facility] Address [address] [place] [address] Care Team Providers Name Role Phone Naeem Xiao MD Primary Care Provider [phone] Reason for Visit Reason Comments Follow-up orthostatic hypotension Encounter Details Date Type Department Care Team Description 10/01/2019 Office Visit [facility] Family Naeem Xiao hypertension Medicine - Hong Gomez MD (Primary Dx) [facility] [address] [place] [phone] Allergies Active Allergy Reactions Severity Noted Date Comments Varenicline Unknown - See comments 06/16/2015 documented as of this encounter (statuses as of 10/01/2019) Medications Medication Sig Dispensed Refills Start Date End Date Status HYDROcodone-acetaminophen 0 07/21/2015 Active (NORCO) 10-325 mg tablet ziprasidone (GEODON) 80 0 07/21/2015 Active mg capsule potassium chloride Take 1 tablet 30 tablet 5 11/09/2017 Active (KLOR-CON 10) 10 mEq CR by mouth tabletIndications: daily. Localized edema NOVOFINE 32 32 gauge x USE 1 Box 12 11/27/2017 Active 1/4" NdleIndications: DIRECTED Uncontrolled type 2 diabetes mellitus without complication, without long-term current use of insulin GABAPENTIN 300 mg TAKE 1 CAPSULE 270 capsule 3 01/22/2018 Active capsuleIndications: BY MOUTH 3 Neuropathy (THREE) TIMES DAILY. albuterol 90 Inhale 2 Puffs 8.5 g 5 06/18/2018 A ctive mcg/actuation every 6 (six) inhalerIndications: hours as Simple chronic bronchitis needed for Wheezing or Shortness of Breath. fluticasone 50 Use 1 [place] in 16 g 5 06/18/2018 Active mcg/actuation nasal each nostril sprayIndications: Chronic daily. sinusitis, unspecified location ALPRAZolam 0.5 mg TAKE 1 TABLET 60 tablet 5 06/18/2018 Active tabletIndications: BY MOUTH TWICE Anxiety A DAY vilazodone (VIIBRYD) 20 Take 1 tablet 90 tablet 4 06/18/2018 Active mgIndications: by mouth Depression, unspecified daily. depression type nortriptyline 75 mg Take 1 capsule 90 capsule 4 06/18/2018 Active capsuleIndications: by mouth at Depression, unspecified bedtime. depression type indomethacin 50 mg Take 1 capsule 30 capsule 2 03/12/2019 Active capsuleIndications: Left by mouth 3 foot pain (three) times daily with meals. Insulin [place], USE 1 Box 12 03/19/2019 Ac tive Disposable, (NOVOFINE 32) DIRECTED 32 gauge x 1/4" NdleIndications: Uncontrolled type 2 diabetes mellitus without complication, without long-term current use of insulin Fenofibric Acid 135 mg TAKE 1 CAPSULE 90 capsule 3 07/02/2019 Active capsuleIndications: BY MOUTH EVERY Hypertriglyceridemia DAY telmisartan 80 mg TAKE 1 TABLET 30 tablet 14 07/18/2019 Active tabletIndications: BY MOUTH EVERY Essential hypertension DAY GABAPENTIN 300 mg TAKE 1 CAPSULE 90 capsule 14 08/13/2019 Active capsuleIndications: BY MOUTH THREE Neuropathy TIMES A DAY metoprolol tartrate 25 mg TAKE 1 TABLET 60 tablet 14 08/18/2019 Active tabletIndications: BY MOUTH TWICE Essential hypertension A DAY FUROSEMIDE 40 mg TAKE 1 TABLET 90 tablet 1 09/01/2019 Active tabletIndications: BY MOUTH EVERY Localized edema DAY amLODIPine 5 mg Take 1 tablet 90 tablet 3 09/09/2019 Active tabletIndications: by mouth Essential hypertension daily. ESTRADIOL 0.5 mg TAKE 1 TABLET 90 tablet 0 09/12/2019 Active tabletIndications: BY MOUTH EVERY Menopausal syndrome DAY IN THE MORNING documented as of this encounter (statuses as of 10/01/2019) Active Problems Problem Noted Date Smoking 06/18/2018 Depression 12/07/2015 Diabetes 12/07/2015 Essential hypertension 12/07/2015 Hypertriglyceridemia 12/07/2015 Osteoarthritis 12/07/2015 documented as of this encounter (statuses as of 10/01/2019) Immunizations Name Administration Dates Next Due Influenza [...] Sign Reading Time Taken Comments Blood Pressure 97/66 10/01/2019 2:31 PM CDT Pulse 82 10/01/2019 2:31 PM CDT Temperature 36.4 C (97.5 F) 10/01/2019 2:24 PM CDT Respiratory Rate - - Oxygen Saturation 95% 10/01/2019 2:24 PM CDT Inhaled Oxygen Concentration - - Weight 105.7 kg (233 lb) 10/01/2019 2:24 PM CDT Height 165.1 cm (5' 5") 10/01/2019 2:24 PM CDT Body Mass Index 38.77 10/01/2019 2:24 PM CDT documented in this encounter Progress Notes Naeem Xiao MD - 10/01/2019 2:15 PM CDT CC: blood pressure is too low last month Angela is a 59 year old female Patient has been on the same blood pressure meds for years Recently added lasix Allergies Allergen Reactions Chantix [Varenicline] Unknown - See comments Current Outpatient Medications Medication Sig Dispense Refill ESTRADIOL 0.5 mg tablet TAKE 1 TABLET BY MOUTH EVERY DAY IN THE MORNING 90 tablet 0 amLODIPine 5 mg tablet Take 1 tablet by mouth daily. 90 tablet 3 FUROSEMIDE 40 mg tablet TAKE 1 TABLET BY MOUTH EVERY DAY 90 tablet 1 metoprolol tartrate 25 mg tablet TAKE 1 TABLET BY MOUTH TWICE A DAY 60 tablet 14 GABAPENTIN 300 mg capsule TAKE 1 CAPSULE BY MOUTH THREE TIMES A DAY 90 capsule 14 telmisartan 80 mg tablet TAKE 1 TABLET BY MOUTH EVERY DAY 30 tablet 14 Fenofibric Acid 135 mg capsule TAKE 1 CAPSULE BY MOUTH EVERY DAY 90 capsule 3 Insulin [place], Disposable, (NOVOFINE 32) 32 gauge x 1/4" Ndle USE DIRECTED 1 Box 12 indomethacin 50 mg capsule Take 1 capsule by mouth 3 (three) times daily with meals. 30 capsule 2 albuterol 90 mcg/actuation inhaler Inhale 2 Puffs every 6 (six) hours as needed for Wheezing or Shortness of Breath. 8.5 g 5 ALPRAZolam 0.5 mg tablet TAKE 1 TABLET BY MOUTH TWICE A DAY 60 tablet 5 fluticasone 50 mcg/actuation nasal spray Use 1 [place] in each nostril daily. 16 g 5 nortriptyline 75 mg capsule Take 1 capsule by mouth at bedtime. 90 capsule 4 vilazodone (VIIBRYD) 20 mg Take 1 tablet by mouth daily. 90 tablet 4 GABAPENTIN 300 mg capsule TAKE 1 CAPSULE BY MOUTH 3 (THREE) TIMES DAILY. 270 capsule 3 NOVOFINE 32 32 gauge x 1/4" Ndle USE DIRECTED 1 Box 12 potassium chloride (KLOR-CON 10) 10 mEq CR tablet Take 1 tablet by mouth daily. 30 tablet 5 HYDROcodone-acetaminophen (NORCO) 10-325 mg tablet ziprasidone (GEODON) [...] Sexual Activity Alcohol use: No Alcohol/week: 0.0 standard drinks Drug use: No Sexual activity: Not on file Lifestyle Physical activity: Days per week: Not on file Minutes per session: Not on file Stress: Not on file Relationships Social connections: Talks on phone: Not on file Gets together: Not on file Attends mosque service: Not on file Active member of [...] Cancer Paternal Aunt Review of Systems BP 126/73 | Pulse 82 | Temp 36.4 C (97.5 F) (Tympanic) | Ht 5' 5" (1.651 m) | Wt 233 lb (105.7 kg) | SpO2 95% | BMI 38.77 kg/m Physical Exam Constitutional: She is oriented [...] Normal range of motion. She exhibits no edema or tenderness. Lymphadenopathy: She has no cervical adenopathy. Neurological: She is alert and oriented to person, place, and time. Skin: Skin is warm and dry. Diagnosis: 1. Essential hypertension overmedicated Reduce her telmisartan by 1/2 Follow up: phone in 2 weeks Patient Care Team: Naeem Xiao MD as PCP - General ([facility]-FAMILY MEDICINE) Plan of care, desired health behaviors, goals,& medication discussed with patient. Education resources & self management tools provided and reviewed with AVS. Patient/guardian/family verbalized understanding & agrees to plan of care. Barriers to care: None Ability to manage care: Good documented in this encounter Plan of Treatment Health Maintenance Due Date Last Done Comments HEPATITIS C (HCV) SCREEN 1960 PNEUMOCOCCAL 0-64 YEARS COMBINED 1965 SERIES (1 of 1 - PPSV23) EYE EXAM 1969 DTaP,Tdap,and Td Vaccines (1 - 1970 Tdap) FOOT EXAM 1977 COLONOSCOPY 2009 Zoster Recombinant Vaccine 2009 (SHINGRIX) (1 of 2) LUNG CANCER SCREEN: Recommended 2014 for age 55-80 with 30 + pack year history HgA1C 12/17/2018 06/18/2018, 05/30/2017, 01/29/2017, Additional history exists Breast Cancer Screening 02/26/2019 02/26/2018, 02/09/2017, (MAMMOGRAM) 12/20/2015 INFLUENZA VACCINE (#1) 2019 05/02/2017 LDL-C 08/01/2019 08/01/2018, 05/31/2016, 06/16/2015 URINE MICROALBUMIN 08/01/2019 08/01/2018, 05/31/2016, 06/16/2015 CREATININE (SERUM) 06/06/2020 06/06/2019, 08/01/2018, 11/09/2017, Additional history exists documented as of this encounter Results Not on filedocumented in this encounter Visit Diagnoses Diagnosis Essential hypertension - Primary Unspecified essential hypertension documented in this encounter documented as of this encounter
--- OUTSIDE RECORDS SUMMARY | 2019-12-26 08:08 | XMS REPORT | Summary of Care ---
:1960 Author Organization [facility] Address [address] [place] [address] Care Team Providers Name Role Phone Naeem Xiao MD Primary Care Provider [phone] Reason for Visit Reason Comments Follow-up orthostatic hypotension Encounter Details Date Type Department Care Team Description 10/01/2019 Office Visit [facility] Family Naeem Xiao hypertension Medicine - Hong Gomez MD (Primary Dx) [facility] [address] [place] [phone] Allergies Active Allergy Reactions Severity Noted Date [...] Shortness of Breath. fluticasone 50 Use 1 [place] in 16 g 5 06/18/2018 Active mcg/actuation [...] pain (three) times daily with meals. Insulin [place], USE 1 Box 12 03/19/2019 Ac tive [...] MOUTH EVERY DAY 90 capsule 3 Insulin [place], Disposable, (NOVOFINE 32) 32 gauge x 1/4" [...] fluticasone 50 mcg/actuation nasal spray Use 1 [place] in each nostril daily. 16 g 5 [...] file Gets together: Not on file Attends amish service: Not on file Active member of [...]
--- OUTSIDE RECORDS SUMMARY | 2019-12-26 08:09 | XMS REPORT | Summary of Care ---
:1960 Author Organization [facility] Address [address] [place] [address] Care Team Providers Name Role Phone Naeem Xiao MD Primary Care Provider [phone] Reason for Visit Reason Comments Refill Request Encounter Details Date Type Department Care Team Description 10/08/2019 Refill [facility] Family Medicine Naeem Cartagena MD Refill Request - [address] [place] [address] [place] [address] [phone] Allergies Active Allergy Reactions Severity Noted Date Comments Varenicline Unknown - See comments 06/16/2015 documented as of this encounter (statuses as of 10/08/2019) Medications Medication Sig Dispensed Refills Start End Status Date Date HYDROcodone-acetaminoph 0 07/21/19 Active en (NORCO) 10-325 mg 16 tablet ziprasidone (GEODON) 80 0 07/21/19 Active mg capsule 16 potassium chloride Take 1 30 tablet 5 11/10/19 A ctive (KLOR-CON 10) 10 mEq CR tablet by 18 tabletIndications: mouth daily. Localized edema NOVOFINE 32 32 gauge x USE 1 Box 12 11/28/19 Active 1/4" NdleIndications: DIRECTED 18 Uncontrolled type 2 diabetes mellitus without complication, without long-term current use of insulin GABAPENTIN 300 mg TAKE 1 270 capsule 3 01/23/20 Active capsuleIndications: CAPSULE BY 18 Neuropathy MOUTH 3 (THREE) TIMES DAILY. albuterol 90 Inhale 2 8.5 g 5 06/18/20 Active mcg/actuation Puffs every 18 inhalerIndications: 6 (six) Simple chronic hours as bronchitis needed for Wheezing or Shortness of Breath. fluticasone 50 Use 1 [place] 16 g 5 06/18/20 Act mare mcg/actuation nasal in each 18 sprayIndications: nostril Chronic sinusitis, daily. unspecified location ALPRAZolam 0.5 mg TAKE 1 60 tablet 5 06/18/20 Ac tive tabletIndications: TABLET BY 18 Anxiety MOUTH TWICE A DAY nortriptyline 75 mg Take 1 90 capsule 4 06/18/20 Active capsuleIndications: capsule by 18 Depression, unspecified mouth at depression type bedtime. indomethacin 50 mg Take 1 30 capsule 2 03/12/20 Active capsuleIndications: capsule by 19 Left foot pain mouth 3 (three) times daily with meals. Insulin [place], USE 1 Box 12 03/19/20 Act mare Disposable, (NOVOFINE DIRECTED ) 32 gauge x 1/4" NdleIndications: Uncontrolled type 2 diabetes mellitus without complication, without long-term current use of insulin Fenofibric Acid 135 mg TAKE 1 90 capsule 3 07/02/20 Active capsuleIndications: CAPSULE BY 19 Hypertriglyceridemia MOUTH EVERY DAY telmisartan 80 mg TAKE 1 30 tablet 14 07/18/19 Ac tive tabletIndications: TABLET BY 20 Essential hypertension MOUTH EVERY DAY GABAPENTIN 300 mg TAKE 1 90 capsule 14 08/13/19 A ctive capsuleIndications: CAPSULE BY 20 Neuropathy MOUTH THREE TIMES A DAY metoprolol tartrate 25 TAKE 1 60 tablet 14 08/18/19 Active mg tabletIndications: TABLET BY 20 Essential hypertension MOUTH TWICE A DAY FUROSEMIDE 40 mg TAKE 1 90 tablet 1 09/01/19 Act mare tabletIndications: TABLET BY 20 Localized edema MOUTH EVERY DAY amLODIPine 5 mg Take 1 90 tablet 3 09/09/19 Acti ve tabletIndications: tablet by 20 Essential hypertension mouth daily. ESTRADIOL 0.5 mg TAKE 1 90 tablet 0 09/12/19 Act mare tabletIndications: TABLET BY 20 Menopausal syndrome MOUTH EVERY DAY IN THE MORNING vilazodone (VIIBRYD) 20 Take 1 90 tablet 3 10/08/19 Active mgIndications: tablet by 20 Depression, unspecified mouth daily. depression type vilazodone (VIIBRYD) 20 Take 1 90 tablet 4 06/18/20 Discontinued mgIndications: tablet by 18 020 (Reor ovidio) Depression, unspecified mouth daily. depression type documented as of this encounter (statuses as of 10/08/2019) Active Problems Problem Noted Date Smoking 06/18/2018 Depression 12/07/2015 Diabetes 12/07/2015 Essential hypertension 12/07/2015 Hypertriglyceridemia 12/07/2015 Osteoarthritis 12/07/2015 documented as of this encounter (statuses as of 10/08/2019) Immunizations Name Administration Dates Next Due Influenza [...] filedocumented in this encounter Visit Diagnoses Diagnosis Depression, unspecified depression type documented in this encounter Insurance Payer Benefit Plan / Group Subscriber ID Effective Dates Phone Address Type COOPERDELORES HANNAHGARCIAInna [id number] 2019-Present PP O documented as of this encounter
--- OUTSIDE RECORDS SUMMARY | 2019-12-26 08:09 | XMS REPORT | Summary of Care ---
:1960 Author Organization [facility] Address [address] [place] [address] Care Team Providers Name Role Phone Naeem Xiao MD Primary Care Provider [phone] Reason for Visit Reason Comments Hypertension Encounter Details Date Type Department Care Team Description 10/07/2019 Telemedicine Visit [facility] Family Naeem Xiao [facility] Medicine - Hong Gomez MD hypertension [address] [place] [address] [phone] Allergies Active Allergy Reactions Severity Noted Date Comments Varenicline Unknown - See comments 06/16/2015 documented as of this encounter (statuses as of 10/07/2019) Medications Medication Sig Dispensed Refills Start Date [...] Shortness of Breath. fluticasone 50 Use 1 [place] in 16 g 5 06/18/2018 Active mcg/actuation [...] pain (three) times daily with meals. Insulin [place], USE 1 Box 12 03/19/2019 Ac tive [...] as of this encounter (statuses as of 10/07/2019) Active Problems Problem Noted Date Smoking 06/18/2018 Depression 12/07/2015 Diabetes 12/07/2015 Essential hypertension 12/07/2015 Hypertriglyceridemia 12/07/2015 Osteoarthritis 12/07/2015 documented as of this encounter (statuses as of 10/07/2019) Immunizations Name Administration Dates Next Due Influenza [...] Signs Not on filedocumented in this encounter Progress Notes Naeem Xiao MD - 10/07/2019 2:00 PM CDT TELEHEALTH NOTE Verbal consent obtained from Patient: Angela Cuevas for telehealth services provided below. Communication with patient was conducted via Telephone. 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 Context: normal sodium, not caffeine, not drug abuse, not herbal remedies, not medication change, not noncompliance, not OTC medications used and not stress Associated symptoms: dizziness (improved but still a problem when ariising) Past Medical History: Diagnosis Date Depression Diabetes mellitus Generalized pain Hyperlipidemia Hypertension Seizures Allergies Allergen Reactions Chantix [Varenicline] Unknown - See comments Family History Problem Relation Age of Onset Diabetes Father Hypertension Father Hypertension Mother Cancer Maternal Grandmother Lung Breast Cancer Paternal Aunt MEDICATIONS: Current Outpatient Medications Medication Sig Dispense Refill [...] MOUTH EVERY DAY 90 capsule 3 Insulin [place], Disposable, (NOVOFINE 32) 32 gauge x 1/4" [...] fluticasone 50 mcg/actuation nasal spray Use 1 [place] in each nostril daily. 16 g 5 [...] No current facility-administered medications for this visit. ROS Review of Systems Neurological: Positive for dizziness (improved but still a problem when ariising). TELEHEALTH EXAM Patient is alert and communicative on the phone with no distress noted. ASSESSMENT/ PLAN 1. Essential hypertension still a little overmedicated; reduce lasix to qod and follow up in 2 weeks After visit summary (AVS ) documentation will be available through [facility] for this encounter. A total of 10 minutes was spent on the Telephone with the patient. Naeem Xiao MD documented in this encounter Plan of Treatment [...]
--- OUTSIDE RECORDS SUMMARY | 2019-12-26 08:10 | XMS REPORT | Summary of Care ---
:1960 Author Organization [facility] Address [address] [place] [address] Care Team Providers Name Role Phone Naeem Xiao MD Primary Care Provider [phone] Reason for Visit Reason Comments Assessment Encounter Details Date Type Department Care Team Description 10/21/2019 Telephone [facility] Pediatric and Naeem Lemos MD Assessment Adult Primary Care- [address] [place] [address] [place] [address] , [address] [place] [address] Allergies Active Allergy Reactions Severity Noted Date Comments Varenicline Unknown - See comments 06/16/2015 documented as of this encounter (statuses as of 10/22/2019) Medications Medication Sig Dispensed Refills Start Date [...] Shortness of Breath. fluticasone 50 Use 1 [place] in 16 g 5 06/18/2018 Active mcg/actuation nasal each nostril sprayIndications: Chronic daily. sinusitis, unspecified location ALPRAZolam 0.5 mg TAKE 1 TABLET 60 tablet 5 06/18/2018 Active tabletIndications: BY MOUTH TWICE Anxiety A DAY nortriptyline 75 mg Take 1 capsule 90 capsule 4 06/18/2018 Active capsuleIndications: by mouth at Depression, unspecified bedtime. depression type indomethacin 50 mg Take 1 capsule 30 capsule 2 03/12/2019 Active capsuleIndications: Left by mouth 3 foot pain (three) times daily with meals. Insulin [place], USE 1 Box 12 03/19/2019 Ac tive [...] EVERY Menopausal syndrome DAY IN THE MORNING vilazodone (VIIBRYD) 20 Take 1 tablet 90 tablet 3 10/08/2019 Active mgIndications: by mouth Depression, unspecified daily. depression type documented as of this encounter (statuses as of 10/22/2019) Active Problems Problem Noted Date Smoking 06/18/2018 Depression 12/07/2015 Diabetes 12/07/2015 Essential hypertension 12/07/2015 Hypertriglyceridemia 12/07/2015 Osteoarthritis 12/07/2015 documented as of this encounter (statuses as of 10/22/2019) Immunizations Name Administration Dates Next Due Influenza [...] Subscriber ID Effective Dates Phone Address Type YARI PATEL [id number] 2019-Present PP O documented as of this encounter
--- OUTSIDE RECORDS SUMMARY | 2019-12-26 08:10 | XMS REPORT | Summary of Care ---
:1960 Author Organization [facility] Address [address] [place] [address] Care Team Providers Name Role Phone Naeem Xiao MD Primary Care Provider [phone] Encounter Details Date Type Department Care Team Description 09/22/2019 Orders Only [facility] Doctor Unassigned, No [address] [facility] Name [place] [id number] [address] [place] [address] Allergies Active Allergy Reactions Severity Noted Date Comments Varenicline Unknown - See comments 06/16/2015 documented as of this encounter (statuses as of 10/13/2019) Medications Medication Sig Dispensed Refills Start Date [...] Shortness of Breath. fluticasone 50 Use 1 [place] in 16 g 5 06/18/2018 Active mcg/actuation [...] pain (three) times daily with meals. Insulin [place], USE 1 Box 12 03/19/2019 Ac tive Disposable, (NOVOFINE 32) DIRECTED 32 gauge x 07/19" NdleIndications: Uncontrolled type [...] as of this encounter (statuses as of 10/13/2019) Active Problems Problem Noted Date Smoking 06/18/2018 Depression 12/07/2015 Diabetes 12/07/2015 Essential hypertension 12/07/2015 Hypertriglyceridemia 12/07/2015 Osteoarthritis 12/07/2015 documented as of this encounter (statuses as of 10/13/2019) Immunizations Name Administration Dates Next Due Influenza [...] history exists documented as of this encounter Procedures Procedure Name Priority Date/Time Associated Diagnosis Comme nts DME/SUPPLY JUSTIFICATION Routine 09/22/2019 12:01 AM CDT documented in this encounter Results Not on filedocumented in this encounter Insurance Payer Benefit Plan / Group Subscriber ID Effective Dates Phone Address Type YARI CAMPOSA [id number] 2019-Present PP O documented as of this encounter
--- OUTSIDE RECORDS SUMMARY | 2019-12-26 08:10 | XMS REPORT | Summary of Care ---
:1960 Author Organization [facility] Address [address] [place] [address] Care Team Providers Name Role Phone Naeem Xiao MD Primary Care Provider [phone] Reason for Visit Reason Comments Refill Request Encounter Details Date Type Department Care Team Description 10/08/[address] [facility] Family Medicine Naeem Cartagena MD Refill Request - [address] [place] [address] [place] [address] [phone] Allergies Active Allergy Reactions Severity Noted Date [...] Shortness of Breath. fluticasone 50 Use 1 [place] 16 g 5 06/18/20 Act mare mcg/actuation [...] 3 (three) times daily with meals. Insulin [place], USE 1 Box 12 03/19/20 Act mare [...] ovidio) Depression, unspecified mouth daily. depression type vilazodone (VIIBRYD) 20 Take 1 90 tablet 3 10/08/19 Discontinued mgIndications: tablet by 20 020 (Reor ovidio) Depression, unspecified mouth daily. [...] Effective Dates Phone Address Type YARI CAMPOSA [id number] 2019-Present PP O documented as of this encounter
--- OUTSIDE RECORDS SUMMARY | 2019-12-26 08:11 | XMS REPORT | Summary of Care ---
:1960 Author Organization [facility] Address [address] [place] [address] Care Team Providers Name Role Phone Naeem Xiao MD Primary Care Provider [phone] Reason for Visit Reason Comments Assessment Encounter Details Date Type Department Care Team Description 10/28/2019 Telephone [facility] Pediatric and Naeem Lemos MD Assessment Adult Primary Care- [address] [place] [address] [place] [address] , [address] [place] [address] Allergies Active Allergy Reactions Severity Noted Date Comments Varenicline Unknown - See comments 06/16/2015 documented as of this encounter (statuses as of 10/29/2019) Medications Medication Sig Dispensed Refills Start Date End Date Status HYDROcodone-acetaminophen 0 07/21/2015 Active (NORCO) 10-325 mg tablet ziprasidone (GEODON) 80 0 07/21/2015 Active mg capsule potassium chloride Take 1 tablet 30 tablet 5 11/09/2017 Active (KLOR-CON 10) 10 mEq CR by mouth tabletIndications: daily. Localized edema NOVOFINE 32 32 gauge x USE 1 Box 12 11/27/2017 Active 1/" NdleIndications: DIRECTED Uncontrolled type 2 diabetes mellitus [...] Shortness of Breath. fluticasone 50 Use 1 [place] in 16 g 5 06/18/2018 Active mcg/actuation [...] pain (three) times daily with meals. Insulin [place], USE 1 Box 12 03/19/2019 Ac tive [...] as of this encounter (statuses as of 10/29/2019) Active Problems Problem Noted Date Smoking 06/18/2018 Depression 12/07/2015 Diabetes 12/07/2015 Essential hypertension 12/07/2015 Hypertriglyceridemia 12/07/2015 Osteoarthritis 12/07/2015 documented as of this encounter (statuses as of 10/29/2019) Immunizations Name Administration Dates Next Due Influenza [...] Effective Dates Phone Address Type YARI PATEL [id number] 2019-Present PP O documented as of this encounter
--- OUTSIDE RECORDS SUMMARY | 2019-12-26 08:12 | XMS REPORT | Summary of Care ---
:1960 Author Organization [facility] [[email or web address]] - [facility] Address [address] [place] [address] Care Team Providers Name Role Phone Naeem Xiao MD Primary Care Provider [phone] Reason for Visit Reason Comments Refill Request Encounter Details Date Type Department Care Team Description 11/03/2019 Refill [facility] Family Medicine Naeem Cartagena MD Refill Request - [address] [place] [address] [place] [address] [phone] Allergies Active Allergy Reactions Severity Noted Date Comments Varenicline Unknown - See comments 06/16/2015 documented as of this encounter (statuses as of 11/03/2019) Medications Medication Sig Dispensed Refills Start End Status Date Date HYDROcodone-acetaminoph 0 07/21/19 Active en (NORCO) 10-325 mg 16 tablet ziprasidone (GEODON) 80 0 07/21/19 Active mg capsule 16 NOVOFINE 32 32 gauge x USE 1 [...] Shortness of Breath. fluticasone 50 Use 1 [place] 16 g 5 06/18/20 Act mare mcg/actuation [...] 3 (three) times daily with meals. Insulin [place], USE 1 Box 12 03/19/20 Act mare Disposable, (NOVOFINE DIRECTED ) 32 gauge x 1/4" NdleIndications: Uncontrolled type 2 diabetes mellitus without complication, without long-term current use of insulin telmisartan 80 mg TAKE 1 30 tablet [...] (VIIBRYD) 20 Take 1 90 tablet 3 10/29/19 Active mgIndications: tablet by 20 Depression, unspecified mouth daily. depression type insulin glargine inject 40 36 mL 0 10/30/19 Act mare (LANTUS U-100 INSULIN) Units under 20 020 100 unit/mL injection the skin daily for 90 days. potassium chloride Take 1 30 tablet 5 11/03/19 A ctive (KLOR-CON 10) 10 mEq CR tablet by 20 tabletIndications: mouth daily. Localized edema Fenofibric Acid 135 mg TAKE 1 90 capsule 3 11/03/19 Active capsuleIndications: CAPSULE BY 20 Hypertriglyceridemia MOUTH EVERY DAY potassium chloride Take 1 30 tablet 5 11/10/19 D iscontinued (KLOR-CON 10) 10 mEq CR tablet by 18 020 (Reorder) tabletIndications: mouth daily. Localized edema Fenofibric Acid 135 mg TAKE 1 90 capsule 3 07/02/20 Discontinued capsuleIndications: CAPSULE BY 19 020 (Reorder) Hypertriglyceridemia MOUTH EVERY DAY documented as of this encounter (statuses as of 11/03/2019) Active Problems Problem Noted Date Smoking 06/18/2018 Depression 12/07/2015 Diabetes 12/07/2015 Essential hypertension 12/07/2015 Hypertriglyceridemia 12/07/2015 Osteoarthritis 12/07/2015 documented as of this encounter (statuses as of 11/03/2019) Immunizations Name Administration Dates Next Due Influenza [...] filedocumented in this encounter Visit Diagnoses Diagnosis Localized edema Edema Hypertriglyceridemia Pure hyperglyceridemia documented in this encounter Insurance Payer Benefit Plan / Group Subscriber ID Effective Dates Phone Address Type MULTIPLAN WEBTPA [id number] 2019-Present PP O documented as of this encounter
--- OUTSIDE RECORDS SUMMARY | 2019-12-26 08:13 | XMS REPORT | Summary of Care ---
:1960 Author Organization [facility] - Health Address [address] [place] [address] Care Team Providers Name Role Phone Naeem Xiao MD Primary Care Provider [phone] Encounter Details Date Type Department Care Team Description 10/29/2019 Orders Only [facility] Doctor Unassigned, No [address] [facility] vard Name [place] [id number] [address] [place] [address] Allergies Active Allergy Reactions Severity Noted Date Comments Varenicline Unknown - See comments 06/16/2015 documented as of this encounter (statuses as of 11/04/2019) Medications Medication Sig Dispensed Refills Start Date End Date Status HYDROcodone-acetamin 0 07/21/2015 Active ophen (NORCO) 10-325 mg tablet ziprasidone (GEODON) 0 07/21/2015 Active 80 mg capsule NOVOFINE 32 32 gauge USE DIRECTED 1 Box 12 11/27/2017 Active x 1/4" NdleIndications: Uncontrolled type 2 diabetes mellitus without complication, without long-term current use of insulin GABAPENTIN 300 mg TAKE 1 CAPSULE 270 capsule 3 01/22/2018 Active capsuleIndications: BY MOUTH 3 Neuropathy (THREE) TIMES DAILY. albuterol 90 Inhale 2 Puffs 8.5 g 5 06/18/2018 A ctive mcg/actuation every 6 (six) inhalerIndications: hours as needed Simple chronic for Wheezing or bronchitis Shortness of Breath. fluticasone 50 Use 1 [place] in 16 g 5 06/18/2018 Active mcg/actuation nasal each nostril sprayIndications: daily. Chronic sinusitis, unspecified location ALPRAZolam 0.5 mg TAKE 1 TABLET BY 60 tablet 5 06/18/2018 Active tabletIndications: MOUTH TWICE A Anxiety DAY nortriptyline 75 mg Take 1 capsule 90 capsule 4 06/18/2018 Active capsuleIndications: by mouth at Depression, bedtime. unspecified depression type indomethacin 50 mg Take 1 capsule 30 capsule 2 03/12/2019 Active capsuleIndications: by mouth 3 Left foot pain (three) times daily with meals. Insulin [place], USE DIRECTED 1 Box 12 03/19/2019 Active Disposable, (NOVOFINE 32) 32 gauge x 07/19" NdleIndications: Uncontrolled type 2 diabetes mellitus without complication, without long-term current use of insulin telmisartan 80 mg TAKE 1 TABLET BY 30 tablet 14 07/18/2019 Active tabletIndications: MOUTH EVERY DAY Essential hypertension GABAPENTIN 300 mg TAKE 1 CAPSULE 90 capsule 14 08/13/2019 Active capsuleIndications: BY MOUTH THREE Neuropathy TIMES A DAY metoprolol tartrate TAKE 1 TABLET BY 60 tablet 14 08/18/2019 Active 25 mg MOUTH TWICE A tabletIndications: DAY Essential hypertension FUROSEMIDE 40 mg TAKE 1 TABLET BY 90 tablet 1 09/01/2019 Active tabletIndications: MOUTH EVERY DAY Localized edema amLODIPine 5 mg Take 1 tablet by 90 tablet 3 09/09/2019 Active tabletIndications: mouth daily. Essential hypertension ESTRADIOL 0.5 mg TAKE 1 TABLET BY 90 tablet 0 09/12/2019 Active tabletIndications: MOUTH EVERY DAY Menopausal syndrome IN THE MORNING vilazodone (VIIBRYD) Take 1 tablet by 90 tablet 3 10/29/2019 Active 20 mgIndications: mouth daily. Depression, unspecified depression type insulin glargine inject 40 Units 36 mL 0 10/30/20192019 Active (LANTUS U-100 under the skin INSULIN) 100 unit/mL daily for 90 injection days. documented as of this encounter (statuses as of 11/04/2019) Active Problems Problem Noted Date Smoking 06/18/2018 Depression 12/07/2015 Diabetes 12/07/2015 Essential hypertension 12/07/2015 Hypertriglyceridemia 12/07/2015 Osteoarthritis 12/07/2015 documented as of this encounter (statuses as of 11/04/2019) Immunizations Name Administration Dates Next Due Influenza [...] Name Priority Date/Time Associated Diagnosis Comme nts PHYSICIAN CERTIFICATION Routine 10/29/2019 12:01 AM STATEMENT CDT documented in this encounter Results Not on filedocumented in this encounter Insurance Payer Benefit Plan / Group Subscriber ID Effective Dates Phone Address Type YARI PATEL [id number] 2019-Present PP O documented as of this encounter
--- OUTSIDE RECORDS SUMMARY | 2019-12-26 08:13 | XMS REPORT | Summary of Care ---
:1960 Author Organization [facility] - [facility] Address [address] [place] [address] Care Team Providers Name Role Phone Naeem Xiao MD Primary Care Provider [phone] Reason for Visit Reason Comments Rx Concern/Question Encounter Details Date Type Department Care Team Description 11/06/2019 Telephone [facility] Family Naeem Xiao Rx Conc rosenda/Question Medicine - Hong Gomez MD [address] [place] [address] [place] [address] [place], [place] [phone] [address] Allergies Active Allergy Reactions Severity Noted Date Comments Varenicline Unknown - See comments 06/16/2015 documented as of this encounter (statuses as of 11/06/2019) Medications Medication Sig Dispensed Refills Start End Status Date Date HYDROcodone-acetaminoph 0 07/21/19 Active en (NORCO) 10-325 mg 16 tablet ziprasidone (GEODON) 80 0 07/21/19 Active mg capsule 16 NOVOFINE 32 32 gauge x USE 1 Box 12 11/28/19 Active 1/" NdleIndications: DIRECTED 18 Uncontrolled type 2 diabetes [...] Shortness of Breath. fluticasone 50 Use 1 [place] 16 g 5 06/18/20 Act mare mcg/actuation [...] 3 (three) times daily with meals. Insulin [place], USE 1 Box 12 03/19/20 Act mare [...] 20 Depression, unspecified mouth daily. depression type potassium chloride Take 1 30 tablet 5 11/03/19 A ctive (KLOR-CON 10) 10 mEq CR tablet by 20 tabletIndications: mouth daily. Localized edema Fenofibric Acid 135 mg TAKE 1 90 capsule 3 11/03/19 Active capsuleIndications: CAPSULE BY 20 Hypertriglyceridemia MOUTH EVERY DAY insulin glargine inject 40 36 mL 0 11/06/19 Act mare (LANTUS U-100 INSULIN) Units under 20 100 unit/mL injection the skin daily. insulin glargine inject 40 36 mL 0 10/30/19 Dis continued (LANTUS U-100 INSULIN) Units under 20 020 (Reorder) 100 unit/mL injection the skin daily for 90 days. documented as of this encounter (statuses as of 11/06/2019) Active Problems Problem Noted Date Smoking 06/18/2018 Depression 12/07/2015 Diabetes 12/07/2015 Essential hypertension 12/07/2015 Hypertriglyceridemia 12/07/2015 Osteoarthritis 12/07/2015 documented as of this encounter (statuses as of 11/06/2019) Immunizations Name Administration Dates Next Due Influenza [...] ID Effective Dates Phone Address Type MULTIPLAN WEBA [id number] 2019-Present PP O documented as of this encounter
--- OUTSIDE RECORDS SUMMARY | 2019-12-26 08:14 | XMS REPORT | Summary of Care ---
:1960 Author Organization [facility] - [facility] Address [address] [place] [address] Care Team Providers Name Role Phone Naeem Xiao MD Primary Care Provider [phone] Reason for Visit Reason Comments Rx Concern/Question Encounter Details Date Type Department Care Team Description 11/06/2019 Telephone [facility] Family Naeem Xiao Rx Conc rosenda/Question Medicine - Hong Gomez MD [address] [place] [address] [place] [address] [place], [place] [phone] Allergies Active Allergy Reactions Severity Noted Date Comments Varenicline Unknown - See comments 06/16/2015 documented as of this encounter (statuses as of 11/07/2019) Medications Medication Sig Dispensed Refills Start End [...] Shortness of Breath. fluticasone 50 Use 1 [place] 16 g 5 06/18/20 Act mare mcg/actuation [...] 3 (three) times daily with meals. Insulin [place], USE 1 Box 12 03/19/20 Act mare [...] by 20 tabletIndications: mouth daily. Localized edema insulin glargine inject 40 36 mL 5 11/07/19 Act mare (LANTUS U-100 INSULIN) Units under 20 100 unit/mL the skin injectionIndications: daily. Type 2 diabetes mellitus without complication, with long-term current use of insulin fenofibrate 145 mg Take 1 30 tablet 12 11/07/19 A ctive tabletIndications: tablet by 20 Hypertriglyceridemia mouth daily. insulin glargine inject 40 36 mL 0 10/30/19 Dis continued (LANTUS U-100 INSULIN) Units under 20 020 (Reorder) 100 unit/mL injection the skin daily for 90 days. Fenofibric Acid 135 mg TAKE 1 90 capsule 3 11/03/19 Discontinued capsuleIndications: CAPSULE BY 20 020 (Alternate Hypertriglyceridemia MOUTH EVERY therapy) DAY insulin glargine inject 40 36 mL 0 11/06/19 Dis continued (LANTUS U-100 INSULIN) Units under 20 020 (Reorder) 100 unit/mL injection the skin daily. documented as of this encounter (statuses as of 11/07/2019) Active Problems Problem Noted Date Smoking 06/18/2018 Depression 12/07/2015 Diabetes 12/07/2015 Essential hypertension 12/07/2015 Hypertriglyceridemia 12/07/2015 Osteoarthritis 12/07/2015 documented as of this encounter (statuses as of 11/07/2019) Immunizations Name Administration Dates Next Due Influenza [...] filedocumented in this encounter Visit Diagnoses Diagnosis Hypertriglyceridemia - Primary Pure hyperglyceridemia Type 2 diabetes mellitus without complic ation, with long-term current use of insulin documented in this encounter Insurance Payer Benefit Plan / Group Subscriber ID Effective Dates Phone Address Type MULTIPLAN WEBTPA [id number] 2019-Present PP O documented as of this encounter
--- OUTSIDE RECORDS SUMMARY | 2019-12-26 08:14 | XMS REPORT | Summary of Care ---
:1960 Author Organization [facility] - [facility] Address [address] [place] [address] Care Team Providers Name Role Phone Naeem Xiao MD Primary Care Provider [phone] Reason for Visit Reason Comments Rx Concern/Question Encounter Details Date Type Department Care Team Description 11/06/2019 Telephone [facility] Family Naeem Xiao Rx Conc rosenda/Question Medicine - Hong Gomez MD [address] [place] [address] [place] [address] [place], [place] [phone] Allergies Active Allergy Reactions Severity Noted Date Comments Varenicline Unknown - See comments 06/16/2015 documented as of this encounter (statuses as of 11/06/2019) Medications Medication Sig Dispensed Refills Start Date End Date Status HYDROcodone-acetaminophen 0 07/21/2015 Active (NORCO) 10-325 mg tablet ziprasidone (GEODON) 80 0 07/21/2015 Active mg capsule NOVOFINE 32 32 gauge x USE 1 [...] Shortness of Breath. fluticasone 50 Use 1 [place] in 16 g 5 06/18/2018 Active mcg/actuation [...] pain (three) times daily with meals. Insulin [place], USE 1 Box 12 03/19/2019 Ac tive Disposable, (NOVOFINE 32) DIRECTED 32 gauge x 07/19" NdleIndications: Uncontrolled type 2 diabetes mellitus without complication, without long-term current use of insulin telmisartan 80 mg TAKE 1 TABLET 30 [...] 20 Take 1 tablet 90 tablet 3 10/29/2019 Active mgIndications: by mouth Depression, unspecified daily. depression type potassium chloride Take 1 tablet 30 tablet 5 11/03/2019 Active (KLOR-CON 10) 10 mEq CR by mouth tabletIndications: daily. Localized edema Fenofibric Acid 135 mg TAKE 1 CAPSULE 90 capsule 3 11/03/2019 Active capsuleIndications: BY MOUTH EVERY Hypertriglyceridemia DAY insulin glargine (LANTUS inject 40 36 mL 0 11/06/2019 Active U-100 INSULIN) 100 Units under unit/mL injection the skin daily. documented as [...] Effective Dates Phone Address Type MULTIPLAN WEBTPA [id number] 2019-Present PP O documented as of this encounter
--- OUTSIDE RECORDS SUMMARY | 2019-12-26 08:15 | XMS REPORT | Summary of Care ---
:1960 Author Organization [facility] Address [address] [place] [address] Care Team Providers Name Role Phone Naeem Xiao MD Primary Care Provider [phone] Reason for Visit Reason Comments Notification Encounter Details Date Type Department Care Team Description 11/19/2019 Telephone [facility] and Naeem Xiao, Notification Clinics [address] [place] [address] [place] [address] [phone] Allergies Active Allergy Reactions Severity Noted Date Comments Varenicline Unknown - See comments 06/16/2015 documented as of this encounter (statuses as of 11/19/2019) Medications Medication Sig Dispensed Refills Start Date [...] Shortness of Breath. fluticasone 50 Use 1 [place] in 16 g 5 06/18/2018 Active mcg/actuation [...] pain (three) times daily with meals. Insulin [place], USE 1 Box 12 03/19/2019 Ac tive [...] CR by mouth tabletIndications: daily. Localized edema insulin glargine (LANTUS inject 40 36 mL 5 11/07/2019 Active U-100 INSULIN) 100 Units under unit/mL the skin injectionIndications: daily. Type 2 diabetes mellitus without complication, with long-term current use of insulin fenofibrate 145 mg Take 1 tablet 30 tablet 12 11/07/2019 Active tabletIndications: by mouth Hypertriglyceridemia daily. documented as of this encounter (statuses as of 11/19/2019) Active Problems Problem Noted Date Smoking 06/18/2018 Depression 12/07/2015 Diabetes 12/07/2015 Essential hypertension 12/07/2015 Hypertriglyceridemia 12/07/2015 Osteoarthritis 12/07/2015 documented as of this encounter (statuses as of 11/19/2019) Immunizations Name Administration Dates Next Due Influenza [...] Cancer Screening 02/26/2019 02/26/2018, 02/09/2017, (MAMMOGRAM) 12/20/2015 LDL-C 08/01/2019 08/01/2018, 05/31/2016, 06/16/2015 URINE MICROALBUMIN 08/01/2019 08/01/2018, 05/31/2016, 06/16/2015 INFLUENZA VACCINE (Season Ended) 2020 05/02/2017 CREATININE (SERUM) 06/06/2020 06/06/2019, 08/01/2018, 11/09/2017, Additional history exists documented as of this encounter Results Not on filedocumented in this encounter Insurance Payer Benefit Plan / Group Subscriber ID Effective Dates Phone Address Type MULTIPLAN WEBGARCIAA [id number] 2019-Present PP O documented as of this encounter
--- OUTSIDE RECORDS SUMMARY | 2019-12-26 08:16 | XMS REPORT | Summary of Care ---
:1960 Author Organization [facility] Address [address] [place] [address] Care Team Providers Name Role Phone Naeem Xiao MD Primary Care Provider [phone] Reason for Referral (Routine) Status Reason Specialty Diagnoses / Referred By Referred To Procedures Contact Contact Pending Review Patient Diagnoses Low back pain of over 3 months duration Naeem Xiao Ajay Requested Procedures CONSULT/REFERRAL PAIN CLINIC MD Jason [address] JACINTO ECHEVARRIA, [facility] [phone] Phone: Fax: Reason for Visit Reason Comments Referral/consult Encounter Details Date Type Department Care Team Description 12/16/2019 Telephone [facility] Family Naeem Xiao, Referral/consult Medicine - Hong PATE [address] [place] [address] [place] [address] [place], [place] [phone] Allergies Active Allergy Reactions Severity Noted Date Comments Varenicline Unknown - See comments 06/16/2015 documented as of this encounter (statuses as of 12/17/2019) Medications Medication Sig Dispensed Refills Start Date [...] Shortness of Breath. fluticasone 50 Use 1 [place] in 16 g 5 06/18/2018 Active mcg/actuation [...] pain (three) times daily with meals. Insulin [place], USE 1 Box 12 03/19/2019 Ac tive [...] CR by mouth tabletIndications: daily. Localized edema fenofibrate 145 mg Take 1 tablet 30 tablet 12 11/07/2019 Active tabletIndications: by mouth Hypertriglyceridemia daily. insulin glargine (LANTUS inject 40 36 mL 5 12/02/2019 Active U-100 INSULIN) 100 Units under unit/mL the skin injectionIndications: daily. Type 2 diabetes mellitus without complication, with long-term current use of insulin documented as of this encounter (statuses as of 12/17/2019) Active Problems Problem Noted Date Smoking 06/18/2018 Depression 12/07/2015 Diabetes 12/07/2015 Essential hypertension 12/07/2015 Hypertriglyceridemia 12/07/2015 Osteoarthritis 12/07/2015 documented as of this encounter (statuses as of 12/17/2019) Immunizations Name Administration Dates Next Due Influenza [...] 06/16/2015 INFLUENZA VACCINE (Season Ended) 2020 05/02/2017 Depression Screening 06/04/2020 06/04/2019 CREATININE (SERUM) 06/06/2020 06/06/2019, 08/01/2018, 11/09/2017, Additional history exists documented as of this encounter Results Not on filedocumented in this encounter Visit Diagnoses Diagnosis Low back pain of over 3 months duration - Primary documented in this encounter Insurance Payer Benefit Plan / Subscriber ID Effective Dates Phone Addre ss Type Group BCBS OF HIM BCBS BLUE [id number] 2019-Deric [phone] [address] [facility] [id number] [place] [address] documented as of this encounter
--- OUTSIDE RECORDS SUMMARY | 2019-12-26 08:16 | XMS REPORT | Summary of Care ---
:1960 Author Organization [facility] Address [address] [place] [address] Care Team Providers Name Role Phone Naeem Xiao MD Primary Care Provider [phone] Reason for Visit Reason Comments Refill Request Encounter Details Date Type Department Care Team Description 12/02/2019 Refill [facility] Pediatric and Naeem Lemos MD Refill Request Adult Primary Care- [address] [place] [address] [address] [facility] , [address] [place] [address] Allergies Active Allergy Reactions Severity Noted Date Comments Varenicline Unknown - See comments 06/16/2015 documented as of this encounter (statuses as of 12/02/2019) Medications Medication Sig Dispensed Refills Start End [...] Shortness of Breath. fluticasone 50 Use 1 [place] 16 g 5 06/18/20 Act mare mcg/actuation [...] 3 (three) times daily with meals. Insulin [place], USE 1 Box 12 03/19/20 Act mare [...] by 20 tabletIndications: mouth daily. Localized edema fenofibrate 145 mg Take 1 30 tablet 12 11/07/19 A ctive tabletIndications: tablet by 20 Hypertriglyceridemia mouth daily. insulin glargine inject 40 36 mL 5 12/02/19 Act mare (LANTUS U-100 INSULIN) Units under 20 100 unit/mL the skin injectionIndications: daily. Type 2 diabetes mellitus without complication, with long-term current use of insulin insulin glargine inject 40 36 mL 5 11/07/19 Dis continued (LANTUS U-100 INSULIN) Units under 20 020 (Reorder) 100 unit/mL the skin injectionIndications: daily. Type 2 diabetes mellitus without complication, with long-term current use of insulin documented as of this encounter (statuses as of 12/02/2019) Active Problems Problem Noted Date Smoking 06/18/2018 Depression 12/07/2015 Diabetes 12/07/2015 Essential hypertension 12/07/2015 Hypertriglyceridemia 12/07/2015 Osteoarthritis 12/07/2015 documented as of this encounter (statuses as of 12/02/2019) Immunizations Name Administration Dates Next Due Influenza [...] filedocumented in this encounter Visit Diagnoses Diagnosis Type 2 diabetes mellitus without complic ation, with long-term current use of insulin documented in this encounter Insurance Payer Benefit Plan / Group Subscriber ID Effective Dates Phone Address Type MULTIPLAN WEBTPA [id number] 2019-Present PP O documented as of this encounter
--- OUTSIDE RECORDS SUMMARY | 2019-12-26 08:16 | XMS REPORT | Summary of Care ---
:1960 Author Organization [facility] Address [address] [place] [address] Care Team Providers Name Role Phone Naeem Xiao MD Primary Care Provider [phone] Reason for Visit Reason Comments Refill Request Encounter Details Date Type Department Care Team Description 12/01/2019 Refill [facility] Family Medicine Naeem Cartagena MD Refill Request - [address] [place] [address] [place] [phone] Allergies Active Allergy Reactions Severity Noted Date Comments Varenicline Unknown - See comments 06/16/2015 documented as of this encounter (statuses as of 12/01/2019) Medications Medication Sig Dispensed Refills Start Date [...] Shortness of Breath. fluticasone 50 Use 1 [place] in 16 g 5 06/18/2018 Active mcg/actuation [...] pain (three) times daily with meals. Insulin [place], USE 1 Box 12 03/19/2019 Ac tive [...] as of this encounter (statuses as of 12/01/2019) Active Problems Problem Noted Date Smoking 06/18/2018 Depression 12/07/2015 Diabetes 12/07/2015 Essential hypertension 12/07/2015 Hypertriglyceridemia 12/07/2015 Osteoarthritis 12/07/2015 documented as of this encounter (statuses as of 12/01/2019) Immunizations Name Administration Dates Next Due Influenza [...] Effective Dates Phone Address Type YARI PATEL [id number] 2019-Present PP O documented as of this encounter
[2019-12-26] MEDS ORDERED: NA CHLORIDE 0.9% 1,000 ML ONE (08:26)
[2019-12-26] MEDS ORDERED: EPINEPHRINE/PF 1 MG/ML AMP ONE (08:43)
[2019-12-26] MEDS ORDERED: dexAMETHasone 10 MG/ML VIAL ONE (08:51)
[2019-12-26] MEDS ORDERED: LIDOCAINE 2% MPF 5 ML VIAL ONE (08:51)
[2019-12-26] MEDS ORDERED: FENTANYL CITR 100 MCG/2 ML ONE (08:51)
[2019-12-26] MEDS ORDERED: MIDAZOLAM HCL 2 MG/2 ML INJ ONE (08:51)
[2019-12-26] MEDS ORDERED: propofoL 200 MG/20 ML VIAL IV ONE (08:51)
[2019-12-26] MEDS ORDERED: ROCURONIUM 50 MG/5 ML VIAL IV ONE (08:51)
[2019-12-26] MEDS ORDERED: KETOROLAC 30 MG/ML INJ ONE (09:39)
--- NOTE | 2019-12-26 09:41 | P.BOP ---
Preoperative diagnosis: left vocal polyps Postoperative diagnosis: same Primary procedure: Dl with telescope and removal of polyps [employer] Production Technician: NONE,NONE Estimated blood loss: <5ml Specimen: Left true vocal cord lesions Findings: large, obstructive left polyp Anesthesia: General Complications: None Implants: none Fluids & blood products: crystalloid 700ml Transferred to: Recovery Room Condition: Good
[2019-12-26] MEDS ORDERED: GLYCOPYRROLATE 0.2 MG/ML SYR ONE (09:50)
[2019-12-26] MEDS ORDERED: NEOSTIGMINE 1 MG/ML -5 ML ONE (09:50)
[2019-12-26] MEDS ORDERED: ONDANSETRON 4 MG/2 ML VIAL ONE (10:25)
[2019-12-26 11:45] VITALS: BP 117/79; TEMP 97; O2SAT 98
--- NOTE | 2019-12-26 23:55 | OP ---
Date of Procedure: 12/26/2019 Surgeon: Esperanza Clifton MD Preoperative Diagnosis: Vocal polyps. Postoperative Diagnosis: Vocal polyps. Procedure Performed: Direct laryngoscopy with telescope and removal of vocal polyps. Indication For Procedure: Angela Cuevas presented in June 2019, to the ENT clinic with symptoms of airway obstruction and was found to have large bilateral vocal polyps. She was taken to the operating room and the right vocal polyp, which was noted to be larger, was removed. Bilateral procedure was not performed due to risk of glottic web formation. The patient was strongly encouraged to stop smoking completely and to monitor her symptoms. She re- presented approximately 6 months later with a delay due to the COVID health crisis. At that time, she complained of worsening airway obstruction over the last few weeks. She has not been able to quit smoking, but has cut down significantly and is now smoking approximately 2-3 cigarettes a day down from about 20 per day. The risks, benefits, and alternatives were discussed with the patient who agreed to proceed. Description Of Procedure: The patient was placed under general anesthesia via oral endotracheal tube. After an adequate plane of anesthesia, the neck was extended and a small shoulder roll was placed. A plastic tooth guard was used to cover the upper teeth and a gauze sponge was placed along the edge of the mandible under the floor of mouth to protect the mucosa in this area. The [facility] laryngoscope was fitted with a 15-degree telescope and was used to perform a direct laryngoscopy. The base of tongue, epiglottis, and piriform sinuses were unremarkable. The microscope was placed in suspension for view of the glottis. Photo documentation was obtained. There is a large polypoid mass attached to the left true vocal fold, which was noted to ball-valve into the airway with palpation. The mass was grasped and laryngeal scissors including straight and angled scissors were used to remove the bulk of the polyp. The area was treated with an epinephrine-soaked pledget for several minutes. After removal, there was small residual polyp at the posterior and anterior most aspects of the attachment. These were very carefully trimmed with laryngeal scissors and with a straight and upbiting small cup forceps to remove the excessive polypoid tissue. A small mucosal flap was then developed and laid over the defect and epinephrine-soaked pledget was placed over the area and allowed to rest for several minutes. The pledget was removed and the area was noted to be hemostatic. The laryngoscope was then released from suspension and carefully withdrawn. The Ray-Jennifer and a rubber tooth guard were removed. A careful inspection was performed of the oral cavity including palpation of the lingual surface of the mandible. There was no evidence of blood or mucosal disruption of these areas. The patient then was returned to care of anesthesia for awakening and extubation in the operating room, which proceeded without difficulty. Disposition: The patient will be discharged home later today. She is strictly instructed for complete vocal rest for 10 days and complete tobacco cessation for at least 10 days. She is advised that continued tobacco use may result in recurrence of her vocal polyps and further surgical intervention will not be performed unless there is significant airway obstruction or if the patient is completely tobacco free for at least 6 months. JAIMEE/ROYER Voice ID: [id number] Report ID: [id number] SADIE
== END 2019-12-26 11:12 | disposition home or self-care (01) ==
LOC: OR 07:52
PROVIDERS: ATTEND Otolaryngology
PROC: 0CBT8ZZ Excision of Right Vocal Cord, Via Natural or Artificial Opening Endoscopic (ICD-10-PCS; principal; 2019-12-26 09:00)
DX: J38.1 Polyp of vocal cord and larynx (principal); Z11.59 Encounter for screening for other viral diseases
CPT/HCPCS: 93005; 82947 ×2; 88305; 31541; J2704; J0171; J2250; J3010; J1100; J2710; J7030; J2405